=== PATIENT | female | born 1975 | race Caucasian/White ===

== ENCOUNTER 2019-02-28 09:28 | Inpatient (IN) | payer MEDICAID ==
[~2019-02-28] VITALS: Ht 162.6 cm; Wt 79.5 kg
[2019-02-28] MEDS ORDERED: ONDANSETRON ODT 4 MG PO PRN (10:30)
[2019-02-28] MEDS ORDERED: BISACODYL 10 MG SUPP PR PRN (10:30)
[2019-02-28] MEDS ORDERED: POLYETHYLENE GLYCOL 17 GM PACKET PO PRN (10:30)
[2019-02-28 10:32] VITALS: BP 166/106
[2019-02-28 10:33] VITALS: BP 166/97
[2019-02-28 10:34] VITALS: BP 145/93
[2019-02-28] MEDS ORDERED: CITA40TA12 PO (10:44)
[2019-02-28] MEDS ORDERED: QUET50TA5 PO (10:44)
[2019-02-28] MEDS ORDERED: DIVA500T2 PO (10:44)
[2019-02-28] MEDS ORDERED: SERT100T PO (10:48)
[2019-02-28] MEDS ORDERED: MELO7.5T31 PO (10:48)
[2019-02-28] MEDS ORDERED: OLAN10TA3 PO (10:48)
[2019-02-28] MEDS ORDERED: DICL100G19 TP (10:48)
[2019-02-28] MEDS ORDERED: LURA20TA PO (10:48)
[2019-02-28] MEDS ORDERED: PLEASE ENTER ALLERGIES MC SCH (11:00)
[2019-02-28 11:30] VITALS: BP 166/106
[2019-02-28] MEDS: ACETAMINOPHEN 325 MG TABLET PO PRN (11:31)
[2019-02-28] MEDS: QUETIAPINE 25MG TABLET PO PRN ×2 (13:00→21:19)
[2019-02-28] MEDS: DIVALPROEX 500 MG TAB.ER.24H PO SCH ×2 (13:00→21:18)
[2019-02-28] MEDS: LIDODERM 5% PATCH TD SCH (15:42)
[2019-02-28 15:44] LABS: MICROSCOPIC INDICATED
[2019-02-28 15:47] LABS: CULTURE INDICATED? YES
[2019-02-28 19:55] VITALS: BP 160/91
[2019-02-28] MEDS: DOCUSATE 100 MG CAPSULE PO PRN (22:00)
[2019-03-01 07:39] VITALS: BP 143/83
[2019-03-01] MEDS: NICOTINE 21 MG/24 HR PATCH.TD24 TD SCH (09:03)
[2019-03-01] MEDS: SERTRALINE 50MG TABLET PO SCH (09:04)
[2019-03-01] MEDS: QUETIAPINE 25MG TABLET PO PRN ×2 (09:04→18:15)
[2019-03-01] MEDS: DIVALPROEX 500 MG TAB.ER.24H PO SCH ×2 (09:04→20:11)
[2019-03-01] MEDS: ACETAMINOPHEN 325 MG TABLET PO PRN (09:04)
[2019-03-01 09:06] LABS: BASOPHILS # (AUTO) 0.04 x10^3/uL (0-0.1); BASOPHILS % (AUTO) 0 % (0-1); EOSINOPHILS # (AUTO) 0.09 x10^3/uL (0-0.4); EOSINOPHILS % (AUTO) 1 % (1-7); LYMPHOCYTES # (AUTO) 4.37 x10^3/uL (1-3.4); LYMPHOCYTES % (AUTO) 41 % (22-44); MD NO; MEAN CORPUSCULAR HEMOGLOBIN 35.1 pg (27.0-34.8); MEAN CORPUSCULAR HGB CONC 32.9 g/dL (32.4-35.8); MEAN CORPUSCULAR VOLUME 106.6 fL (80-100); MEAN PLATELET VOLUME 8.4 fL (7.4-10.4); MONOCYTES # (AUTO) 0.68 x10^3/uL (0.2-0.8); MONOCYTES % (AUTO) 6 % (2-9); NEUTROPHILS # (AUTO) 5.49 x10^3/uL (1.8-6.8); NEUTROPHILS % (AUTO) 51 % (42-75); PLATELET COUNT 325 x10^3/uL (130-400); RED BLOOD COUNT 5.03 x10^6/uL (3.82-5.3); RED CELL DISTRIBUTION WIDTH 12.7 % (9.6-15.2)
[2019-03-01 09:17] LABS: ANION GAP 8 mmol/L (5-15); CALCIUM 9.3 mg/dL (8.5-10.1); CHLORIDE 107 mmol/L (98-107)
[2019-03-01 09:21] LABS: CHOL/HDL RATIO 8.5; CHOLESTEROL, TOTAL 178 mg/dL (140-239); CREATININE 0.79 mg/dL (0.55-1.02); HDL CHOL % 12 % (28-40); HDL CHOLESTEROL (DIRECT) 21 mg/dL (40-60); LDL CHOLESTEROL,CALCULATED 104 mg/dL (54-169); TRIGLYCERIDES 266 mg/dL (50-200); VLDL CHOLESTEROL 53 mg/dL (0-25)
[2019-03-01 09:26] LABS: ACETAMINOPHEN < 2 mcg/mL (10-30)
[2019-03-01 12:50] VITALS: BP 164/107
[2019-03-01 13:06] VITALS: BP 164/107
[2019-03-01] MEDS: IBUPROFEN 200 MG TABLET PO PRN (13:06)
[2019-03-01 13:52] VITALS: BP 164/93
[2019-03-01 14:35] VITALS: BP 163/100
[2019-03-01] MEDS: LIDODERM 5% PATCH TD SCH (14:54)
[2019-03-01 19:33] VITALS: BP 151/88
[2019-03-01] MEDS: GABAPENTIN 100 MG CAPSULE PO SCH (20:11)
[2019-03-01] MEDS: GEMFIBROZIL 600 MG TABLET PO SCH (20:11)
[2019-03-02 07:25] VITALS: BP 160/88
[2019-03-02] MEDS: GABAPENTIN 100 MG CAPSULE PO SCH ×3 (09:15→20:39)
[2019-03-02] MEDS: SERTRALINE 50MG TABLET PO SCH (09:15)
[2019-03-02] MEDS: DIVALPROEX 500 MG TAB.ER.24H PO SCH ×2 (09:15→20:39)
[2019-03-02] MEDS: NICOTINE 21 MG/24 HR PATCH.TD24 TD SCH (09:15)
[2019-03-02] MEDS: QUETIAPINE 25MG TABLET PO PRN ×2 (09:25→18:10)
[2019-03-02] MEDS: IBUPROFEN 200 MG TABLET PO PRN (09:25)
[2019-03-02] MEDS: CHLORTHALIDONE 25 MG TABLET PO SCH (11:57)
[2019-03-02] MEDS: GEMFIBROZIL 600 MG TABLET PO SCH ×2 (11:57→20:49)
[2019-03-02] MEDS: LIDODERM 5% PATCH TD SCH (15:30)
[2019-03-02 19:43] VITALS: BP 138/87
[2019-03-02] MEDS: DOCUSATE 100 MG CAPSULE PO PRN (20:53)
[2019-03-03 07:09] LABS: ANION GAP 6 mmol/L (5-15); CALCIUM 8.6 mg/dL (8.5-10.1); CHLORIDE 108 mmol/L (98-107)
[2019-03-03 07:10] LABS: CREATININE 0.64 mg/dL (0.55-1.02)
[2019-03-03 07:13] VITALS: BP 137/96
[2019-03-03] MEDS: IBUPROFEN 200 MG TABLET PO PRN ×2 (07:30→19:41)
[2019-03-03] MEDS: DIVALPROEX 500 MG TAB.ER.24H PO SCH ×2 (09:57→20:52)
[2019-03-03] MEDS: CHLORTHALIDONE 25 MG TABLET PO SCH (09:58)
[2019-03-03] MEDS: QUETIAPINE 25MG TABLET PO PRN ×2 (09:58→20:53)
[2019-03-03] MEDS: GABAPENTIN 100 MG CAPSULE PO SCH ×3 (09:58→20:52)
[2019-03-03] MEDS: SERTRALINE 100MG TABLET PO SCH (10:00)
[2019-03-03] MEDS: NICOTINE 21 MG/24 HR PATCH.TD24 TD SCH (10:07)
[2019-03-03] MEDS: GEMFIBROZIL 600 MG TABLET PO SCH ×2 (10:49→21:01)
[2019-03-03] MEDS: DOCUSATE 100 MG CAPSULE PO PRN (10:50)
[2019-03-03] MEDS: LIDODERM 5% PATCH TD SCH (15:03)
[2019-03-03 15:45] VITALS: BP 172/112
[2019-03-03 17:30] VITALS: BP 154/92
[2019-03-03 20:00] VITALS: BP 148/97
[2019-03-04 02:55] VITALS: BP 146/85
[2019-03-04 05:08] VITALS: BP 134/84
[2019-03-04 07:22] VITALS: BP 138/85
[2019-03-04] MEDS: SERTRALINE 100MG TABLET PO SCH (09:28)
[2019-03-04] MEDS: GEMFIBROZIL 600 MG TABLET PO SCH ×2 (09:28→20:31)
[2019-03-04] MEDS: DIVALPROEX 500 MG TAB.ER.24H PO SCH ×2 (09:28→20:30)
[2019-03-04] MEDS: GABAPENTIN 100 MG CAPSULE PO SCH ×3 (09:30→20:31)
[2019-03-04] MEDS: CHLORTHALIDONE 25 MG TABLET PO SCH (09:30)
[2019-03-04] MEDS: NICOTINE 21 MG/24 HR PATCH.TD24 TD SCH (09:33)
[2019-03-04] MEDS: QUETIAPINE 25MG TABLET PO PRN (09:51)
[2019-03-04] MEDS: ACETAMINOPHEN 325 MG TABLET PO PRN (11:04)
[2019-03-04] MEDS: LIDODERM 5% PATCH TD SCH (14:35)
[2019-03-04 14:39] VITALS: BP 171/104
[2019-03-04] MEDS: BUSPIRONE 5 MG TABLET PO SCH ×2 (15:29→20:30)
[2019-03-04] MEDS: DOCUSATE 100 MG CAPSULE PO PRN (15:39)
[2019-03-04 17:30] VITALS: BP 144/94
[2019-03-04 19:57] VITALS: BP 137/93
[2019-03-04] MEDS: QUETIAPINE 100MG TABLET PO SCH (20:31)
[2019-03-04] MEDS: IBUPROFEN 200 MG TABLET PO PRN (20:32)
[2019-03-05 03:00] VITALS: BP 137/90
[2019-03-05 07:30] VITALS: BP 150/89
[2019-03-05] MEDS: DIVALPROEX 500 MG TAB.ER.24H PO SCH ×2 (08:40→20:02)
[2019-03-05] MEDS: BUSPIRONE 5 MG TABLET PO SCH ×3 (08:41→20:02)
[2019-03-05] MEDS: GEMFIBROZIL 600 MG TABLET PO SCH ×2 (08:41→20:01)
[2019-03-05] MEDS: CHLORTHALIDONE 25 MG TABLET PO SCH (08:41)
[2019-03-05] MEDS: SERTRALINE 100MG TABLET PO SCH (08:41)
[2019-03-05] MEDS: GABAPENTIN 100 MG CAPSULE PO SCH ×3 (08:41→20:01)
[2019-03-05] MEDS: NICOTINE 21 MG/24 HR PATCH.TD24 TD SCH (08:43)
[2019-03-05] MEDS: ACETAMINOPHEN 325 MG TABLET PO PRN ×2 (12:01→20:01)
[2019-03-05] MEDS: DOCUSATE 100 MG CAPSULE PO PRN (12:56)
[2019-03-05] MEDS: LIDODERM 5% PATCH TD SCH (15:37)
[2019-03-05 19:33] VITALS: BP 159/113
[2019-03-05] MEDS: QUETIAPINE 100MG TABLET PO SCH (20:01)
[2019-03-05 21:57] VITALS: BP 135/82
[2019-03-06 04:30] VITALS: BP 121/72
[2019-03-06 07:50] VITALS: BP 135/86
[2019-03-06] MEDS: NICOTINE 21 MG/24 HR PATCH.TD24 TD SCH (10:01)
[2019-03-06] MEDS: GEMFIBROZIL 600 MG TABLET PO SCH ×2 (10:02→20:10)
[2019-03-06] MEDS: GABAPENTIN 100 MG CAPSULE PO SCH ×3 (10:02→20:11)
[2019-03-06] MEDS: SERTRALINE 100MG TABLET PO SCH (10:02)
[2019-03-06] MEDS: DIVALPROEX 500 MG TAB.ER.24H PO SCH ×2 (10:03→20:11)
[2019-03-06] MEDS: BUSPIRONE 5 MG TABLET PO SCH ×3 (10:03→20:10)
[2019-03-06] MEDS: CHLORTHALIDONE 25 MG TABLET PO SCH (10:03)
[2019-03-06] MEDS: IBUPROFEN 200 MG TABLET PO PRN ×2 (10:30→20:10)
[2019-03-06] MEDS: LIDODERM 5% PATCH TD SCH (15:47)
[2019-03-06 16:03] VITALS: BP 127/65
[2019-03-06 19:47] VITALS: BP 135/85
[2019-03-06] MEDS: QUETIAPINE 100MG TABLET PO SCH (20:10)
[2019-03-06 22:04] VITALS: BP 131/83
[2019-03-07 07:23] VITALS: BP 124/80
[2019-03-07] MEDS: NICOTINE 21 MG/24 HR PATCH.TD24 TD SCH (08:53)
[2019-03-07] MEDS: GEMFIBROZIL 600 MG TABLET PO SCH ×2 (08:53→20:12)
[2019-03-07] MEDS: GABAPENTIN 100 MG CAPSULE PO SCH ×3 (08:53→20:12)
[2019-03-07] MEDS: BUSPIRONE 5 MG TABLET PO SCH ×3 (08:53→20:12)
[2019-03-07] MEDS: CHLORTHALIDONE 25 MG TABLET PO SCH (08:53)
[2019-03-07] MEDS: SERTRALINE 100MG TABLET PO SCH (08:53)
[2019-03-07] MEDS: DIVALPROEX 500 MG TAB.ER.24H PO SCH ×2 (08:53→20:12)
[2019-03-07] MEDS: ACETAMINOPHEN 325 MG TABLET PO PRN ×2 (13:27→20:12)
[2019-03-07] MEDS: LIDODERM 5% PATCH TD SCH ×2 (15:32→20:14)
[2019-03-07 15:47] VITALS: BP 130/81
[2019-03-07] MEDS: DOCUSATE 100 MG CAPSULE PO PRN (15:51)
[2019-03-07 19:40] VITALS: BP 129/93
[2019-03-07] MEDS: QUETIAPINE 100MG TABLET PO SCH (20:12)
[2019-03-08 07:32] VITALS: BP 125/81
[2019-03-08] MEDS: BUSPIRONE 5 MG TABLET PO SCH (08:55)
[2019-03-08] MEDS: GEMFIBROZIL 600 MG TABLET PO SCH (08:55)
[2019-03-08] MEDS: NICOTINE 21 MG/24 HR PATCH.TD24 TD SCH (08:55)
[2019-03-08] MEDS: DIVALPROEX 500 MG TAB.ER.24H PO SCH (08:55)
[2019-03-08] MEDS: SERTRALINE 100MG TABLET PO SCH (08:56)
[2019-03-08] MEDS: CHLORTHALIDONE 25 MG TABLET PO SCH (08:56)
[2019-03-08] MEDS: GABAPENTIN 100 MG CAPSULE PO SCH (08:56)
[2019-03-08] MEDS: ACETAMINOPHEN 325 MG TABLET PO PRN (09:03)
== END 2019-03-08 13:09 | disposition home or self-care (01) | DRG 885 ==
LOC: 3E 10:20
PROVIDERS: ADMIT Psychiatry & Neurology Psychosomatic Medicine; ATTEND Psychiatry & Neurology Psychosomatic Medicine
DX: F31.5 Bipolar disorder, current episode depressed, severe, with psychotic features (principal); T39.1X2A Poisoning by 4-Aminophenol derivatives, intentional self-harm, initial encounter; T45.0X2A Poisoning by antiallergic and antiemetic drugs, intentional self-harm, initial encounter; T39.312A Poisoning by propionic acid derivatives, intentional self-harm, initial encounter; T42.6X2A Poisoning by other antiepileptic and sedative-hypnotic drugs, intentional self-harm, initial encounter; M54.9 Dorsalgia, unspecified; G89.29 Other chronic pain; F41.1 Generalized anxiety disorder; F17.210 Nicotine dependence, cigarettes, uncomplicated; M41.9 Scoliosis, unspecified; I10 Essential (primary) hypertension; K59.00 Constipation, unspecified; I25.10 Atherosclerotic heart disease of native coronary artery without angina pectoris; E78.5 Hyperlipidemia, unspecified; G47.00 Insomnia, unspecified; Y92.89 Other specified places as the place of occurrence of the external cause; Z83.3 Family history of diabetes mellitus; Z90.710 Acquired absence of both cervix and uterus; Z79.899 Other long term (current) drug therapy; Z71.6 Tobacco abuse counseling; Z56.0 Unemployment, unspecified; Z72.89 Other problems related to lifestyle
CPT/HCPCS: 36415; 71045; 80048; 80061; 80307; 81001; 82140; 82607; 84439; 84443; 84703; 85025; 86592; 87086; 93005; 92522-GN

== ENCOUNTER 2019-12-25 18:45 | Inpatient (IN) | payer MEDICAID ==
[~2019-12-25] VITALS: Ht 170.2 cm; Wt 66.2 kg
[~2019-12-25 18:45] MED LIST: CHLO25TA PO; CITA40TA12 PO; DICL100G19 TP; DIVA500T2 PO; GABA300C10 PO; GEMF600T8 PO; HYDR50TA99 PO; LURA20TA PO; MELO7.5T31 PO; OLAN10TA3 PO; QUET100T PO; QUET50TA5 PO; SERT100T PO
[2019-12-25] MEDS ORDERED: BISACODYL 10 MG SUPP PR PRN (19:00)
[2019-12-25] MEDS ORDERED: ONDANSETRON ODT 4 MG PO PRN (19:00)
[2019-12-25] MEDS ORDERED: POLYETHYLENE GLYCOL 17 GM PACKET PO PRN (19:00)
[2019-12-25] MEDS ORDERED: DOCUSATE 100 MG CAPSULE PO PRN (19:00)
[2019-12-25 21:00] VITALS: BP 138/83
[2019-12-25 21:12] VITALS: BP 162/102
[2019-12-25] MEDS ORDERED: IBUPROFEN 200 MG TABLET PO PRN (22:30)
[2019-12-25] MEDS: DIPHENHYDRAMINE 25 MG CAPSULE PO PRN (23:19)
[2019-12-26] MEDS: CLOTRIMAZOLE CRM 1%, 15GM TP SCH ×3 (01:12→21:29)
[2019-12-26 01:29] VITALS: BP 132/83
[2019-12-26] MEDS ORDERED: CHLO25TA PO (04:00)
[2019-12-26 07:13] LABS: FREE T4 (FREE THYROXINE) 0.92 ng/dL (0.76-1.46)
[2019-12-26 07:14] LABS: CHOL/HDL RATIO 2.6; LDL/HDL RATIO 1.1 (0.5-3.0)
[2019-12-26 07:36] VITALS: BP 145/97
[2019-12-26 07:41] LABS: MICROSCOPIC NOT IND
[2019-12-26 07:46] LABS: CULTURE INDICATED? NO
[2019-12-26] MEDS: SERTRALINE 50MG TABLET PO SCH (09:00)
[2019-12-26] MEDS: ACETAMINOPHEN 325 MG TABLET PO PRN ×2 (09:29→21:27)
[2019-12-26] MEDS: GABAPENTIN 300 MG CAPSULE PO SCH ×2 (09:29→17:09)
[2019-12-26] MEDS: GEMFIBROZIL 600 MG TABLET PO SCH ×2 (09:29→21:14)
[2019-12-26] MEDS: CHLORTHALIDONE 25 MG TABLET PO SCH (09:30)
[2019-12-26] MEDS: NICOTINE 21 MG/24 HR PATCH.TD24 TD SCH (09:30)
[2019-12-26] MEDS ORDERED: SERTRALINE 100MG TABLET ONE (09:40)
[2019-12-26] MEDS ORDERED: MELOXICAM 15 MG TABLET PO ONE (15:30)
[2019-12-26] MEDS: HYDROXYZINE PAMOATE 50MG CAP PO PRN ×2 (15:39→21:15)
[2019-12-26] MEDS: SERTRALINE 100MG TABLET PO SCH (17:09)
[2019-12-26 19:36] VITALS: BP 169/94
[2019-12-26] MEDS ORDERED: LORazepam 2 MG/ML, 1ML ONE (20:54)
[2019-12-26] MEDS: QUETIAPINE 100MG TABLET PO SCH (21:15)
[2019-12-26] MEDS: DIVALPROEX 500 MG TABLET.DR PO SCH (21:25)
[2019-12-27] MEDS: ACETAMINOPHEN 325 MG TABLET PO PRN (02:35)
[2019-12-27] MEDS: ALBUTEROL SULFATE 2.5 MG/3 ML NPPB PRN (04:09)
[2019-12-27] MEDS ORDERED: LORazepam 2 MG/ML, 1ML IM PRN (05:00)
[2019-12-27 07:34] VITALS: BP 141/101
[2019-12-27] MEDS: CLOTRIMAZOLE CRM 1%, 15GM TP SCH ×2 (09:00→21:00)
[2019-12-27] MEDS: DIVALPROEX 500 MG TABLET.DR PO SCH ×2 (09:27→21:00)
[2019-12-27] MEDS: MELOXICAM 15 MG TABLET PO SCH (09:27)
[2019-12-27] MEDS: CHLORTHALIDONE 25 MG TABLET PO SCH (09:27)
[2019-12-27] MEDS: GABAPENTIN 300 MG CAPSULE PO SCH ×2 (09:27→19:41)
[2019-12-27] MEDS: GEMFIBROZIL 600 MG TABLET PO SCH ×2 (09:28→20:54)
[2019-12-27] MEDS: SERTRALINE 50MG TABLET PO SCH (09:28)
[2019-12-27] MEDS: NICOTINE 21 MG/24 HR PATCH.TD24 TD SCH (09:37)
[2019-12-27] MEDS: HYDROXYZINE PAMOATE 50MG CAP PO PRN ×2 (09:41→20:54)
[2019-12-27] MEDS ORDERED: LORazepam 1MG TABLET PO ONE (13:30)
[2019-12-27] MEDS: QUETIAPINE 25MG TABLET PO SCH ×3 (15:28→21:48)
[2019-12-27] MEDS: SERTRALINE 100MG TABLET PO SCH (17:31)
[2019-12-27] MEDS: QUETIAPINE 100MG TABLET PO SCH (21:46)
[2019-12-28] MEDS: ALBUTEROL SULFATE 2.5 MG/3 ML NPPB PRN ×2 (03:01→20:47)
[2019-12-28 07:31] VITALS: BP 133/89
[2019-12-28] MEDS: SERTRALINE 50MG TABLET PO SCH (09:02)
[2019-12-28] MEDS: MELOXICAM 15 MG TABLET PO SCH (09:02)
[2019-12-28] MEDS: QUETIAPINE 25MG TABLET PO SCH ×2 (09:04→21:53)
[2019-12-28] MEDS: DIVALPROEX 500 MG TABLET.DR PO SCH ×2 (09:08→21:49)
[2019-12-28] MEDS: GEMFIBROZIL 600 MG TABLET PO SCH ×2 (09:11→21:45)
[2019-12-28] MEDS: GABAPENTIN 300 MG CAPSULE PO SCH ×2 (09:11→18:18)
[2019-12-28] MEDS: CHLORTHALIDONE 25 MG TABLET PO SCH (09:11)
[2019-12-28] MEDS: NICOTINE 21 MG/24 HR PATCH.TD24 TD SCH (15:47)
[2019-12-28] MEDS: CLOTRIMAZOLE CRM 1%, 15GM TP SCH ×2 (15:47→21:53)
[2019-12-28 19:52] VITALS: BP 150/103
[2019-12-28] MEDS: IBUPROFEN 200 MG TABLET PO PRN (21:42)
[2019-12-28] MEDS: DIPHENHYDRAMINE 25 MG CAPSULE PO PRN (21:48)
[2019-12-28] MEDS: QUETIAPINE 100MG TABLET PO SCH (21:48)
[2019-12-29 07:54] VITALS: BP 130/87
[2019-12-29] MEDS: NICOTINE 21 MG/24 HR PATCH.TD24 TD SCH (08:09)
[2019-12-29] MEDS: GEMFIBROZIL 600 MG TABLET PO SCH ×2 (08:10→20:25)
[2019-12-29] MEDS: IBUPROFEN 200 MG TABLET PO PRN ×2 (08:10→15:47)
[2019-12-29] MEDS: MELOXICAM 15 MG TABLET PO SCH (08:10)
[2019-12-29] MEDS: QUETIAPINE 25MG TABLET PO SCH ×2 (08:10→20:26)
[2019-12-29] MEDS: DIVALPROEX 500 MG TABLET.DR PO SCH ×2 (08:11→20:25)
[2019-12-29] MEDS: HYDROXYZINE PAMOATE 50MG CAP PO PRN ×2 (08:11→15:46)
[2019-12-29] MEDS: CHLORTHALIDONE 25 MG TABLET PO SCH (08:11)
[2019-12-29] MEDS: SERTRALINE 50MG TABLET PO SCH (08:11)
[2019-12-29] MEDS: GABAPENTIN 300 MG CAPSULE PO SCH ×2 (08:11→17:47)
[2019-12-29] MEDS: CLOTRIMAZOLE CRM 1%, 15GM TP SCH ×2 (09:00→21:00)
[2019-12-29 19:50] VITALS: BP 133/94
[2019-12-29] MEDS: QUETIAPINE 100MG TABLET PO SCH (20:26)
[2019-12-30] MEDS: IBUPROFEN 200 MG TABLET PO PRN (05:39)
[2019-12-30 07:20] VITALS: BP 132/86
[2019-12-30] MEDS ORDERED: QUET25TA7 PO (09:13)
[2019-12-30] MEDS ORDERED: NICO-487 TD (09:13)
[2019-12-30] MEDS ORDERED: DIVA-61 PO (09:13)
[2019-12-30] MEDS ORDERED: QUET100T PO (09:13)
[2019-12-30] MEDS ORDERED: GABA300C10 PO ×2 (09:13)
[2019-12-30] MEDS ORDERED: SERT50TA28 PO (09:13)
[2019-12-30] MEDS ORDERED: HYDR50CA2 PO (09:13)
[2019-12-30] MEDS ORDERED: GEMF600T8 PO (09:13)
[2019-12-30] MEDS ORDERED: CHLO25TA PO (09:13)
[2019-12-30] MEDS ORDERED: MELO15TA24 PO (09:13)
[2019-12-30] MEDS: DIVALPROEX 500 MG TABLET.DR PO SCH ×2 (09:25→09:30)
[2019-12-30] MEDS: GABAPENTIN 300 MG CAPSULE PO SCH (09:25)
[2019-12-30] MEDS: GEMFIBROZIL 600 MG TABLET PO SCH (09:25)
[2019-12-30] MEDS: MELOXICAM 15 MG TABLET PO SCH (09:26)
[2019-12-30] MEDS: NICOTINE 21 MG/24 HR PATCH.TD24 TD SCH (09:26)
[2019-12-30] MEDS: CHLORTHALIDONE 25 MG TABLET PO SCH (09:26)
[2019-12-30] MEDS: QUETIAPINE 25MG TABLET PO SCH (09:26)
[2019-12-30] MEDS: SERTRALINE 50MG TABLET PO SCH (09:26)
[2019-12-30] MEDS: CLOTRIMAZOLE CRM 1%, 15GM TP SCH (09:26)
== END 2019-12-30 12:48 | disposition home or self-care (01) | DRG 753 ==
LOC: 3E 20:42
PROVIDERS: ADMIT Psychiatry & Neurology Psychosomatic Medicine; ATTEND Psychiatry & Neurology Psychosomatic Medicine
DX: F31.64 Bipolar disorder, current episode mixed, severe, with psychotic features (principal); M41.9 Scoliosis, unspecified; E78.1 Pure hyperglyceridemia; F17.200 Nicotine dependence, unspecified, uncomplicated; F41.9 Anxiety disorder, unspecified; G47.00 Insomnia, unspecified; G89.29 Other chronic pain; I25.10 Atherosclerotic heart disease of native coronary artery without angina pectoris; Z79.1 Long term (current) use of non-steroidal anti-inflammatories (NSAID); Z79.899 Other long term (current) drug therapy; Z83.3 Family history of diabetes mellitus; Z83.49 Family history of other endocrine, nutritional and metabolic diseases; Z80.1 Family history of malignant neoplasm of trachea, bronchus and lung
CPT/HCPCS: 36415; 71045; 80061; 81003; 82140; 84439; 84443; 93005; 94640; J7613; J2060; Q0163; Q0177

== ENCOUNTER 2020-01-12 07:07 | Emergency (ER) | payer MEDICAID ==
[~2020-01-12] VITALS: Ht 170.2 cm; Wt 62.8 kg
[~2020-01-12 07:07] MED LIST changes: +DIVA-61 PO; +HYDR50CA2 PO; +MELO15TA24 PO; +NICO-487 TD; +QUET25TA7 PO; +SERT50TA28 PO
[2020-01-12 07:10] VITALS: BP 148/80
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
--- NOTE | 2020-01-12 07:48 | NUR ---
SECOND ATTEMPT TO OBTAIN EKG PER EMT, PT IN RM, STATES SHE IS HUNGRY, ATTEMPTING TO MAKE MAC AND CHEESE WITH WATER FROM THE SINK, PT NOT TAKING OFF SHIRT FOR ACCESS FOR EMT TO OBTAIN EKG, ATTEMPTED TO REDIRECT PT WITH NO SUCCESS AT THIS TIME, WILL UPDATE ERMD.
== END 2020-01-12 08:39 | disposition home or self-care (01) ==
LOC: ED 07:35
DX: I11.9 Hypertensive heart disease without heart failure (principal); Z76.0 Encounter for issue of repeat prescription; E78.00 Pure hypercholesterolemia, unspecified; F20.9 Schizophrenia, unspecified; F17.290 Nicotine dependence, other tobacco product, uncomplicated; Z90.710 Acquired absence of both cervix and uterus
CPT/HCPCS: 93005; 99283

== ENCOUNTER 2020-01-15 08:34 | Emergency (ER) | payer MEDICAID ==
[~2020-01-15] VITALS: Ht 170.2 cm; Wt 74.5 kg
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
[2020-01-15 08:41] VITALS: BP 157/88
[2020-01-15] MEDS ORDERED: SODIUM CHLORIDE FLUSH 10ML SYR IVF ONE (09:00)
[2020-01-15] MEDS ORDERED: SODIUM CHLORIDE 0.9% 1,000ML IVBOLUS ONE (09:00)
[2020-01-15 09:01] LABS: BASOPHILS # (AUTO) 0.04 x10^3/uL (0-0.1); BASOPHILS % (AUTO) 0 % (0-1); EOSINOPHILS # (AUTO) 0.07 x10^3/uL (0-0.4); EOSINOPHILS % (AUTO) 1 % (1-7); LYMPHOCYTES # (AUTO) 1.96 x10^3/uL (1-3.4); LYMPHOCYTES % (AUTO) 18 % (22-44); MD NO; MEAN CORPUSCULAR HEMOGLOBIN 34.3 pg (27.0-34.8); MEAN CORPUSCULAR HGB CONC 33.8 g/dL (32.4-35.8); MEAN CORPUSCULAR VOLUME 101.3 fL (80-100); MEAN PLATELET VOLUME 7.9 fL (7.4-10.4); MONOCYTES # (AUTO) 0.66 x10^3/uL (0.2-0.8); MONOCYTES % (AUTO) 6 % (2-9); NEUTROPHILS # (AUTO) 8.41 x10^3/uL (1.8-6.8); NEUTROPHILS % (AUTO) 76 % (42-75); PLATELET COUNT 397 x10^3/uL (130-400); RED BLOOD COUNT 4.32 x10^6/uL (3.82-5.3); RED CELL DISTRIBUTION WIDTH 13.9 % (9.6-15.2)
[2020-01-15 09:13] LABS: ALANINE AMINOTRANSFERASE 42 U/L (12-78); ALBUMIN 4.2 g/dL (3.4-5.0); ANION GAP 8 mmol/L (5-15); CALCIUM 9.8 mg/dL (8.5-10.1); CHLORIDE 109 mmol/L (98-107); CREATININE 0.72 mg/dL (0.55-1.02)
[2020-01-15 09:16] LABS: ALKALINE PHOSPHATASE 72 U/L (45-117); BILIRUBIN,TOTAL 0.7 mg/dL (0.2-1.0); CREATINE KINASE, TOTAL 591 U/L (26-192); TOTAL PROTEIN 7.3 g/dL (6.4-8.2)
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
--- NOTE | 2020-01-15 09:54 | NUR ---
ERP WAS IN FOR RECHECK.
--- NOTE | 2020-01-15 10:02 | NUR ---
UA NOT NECESSARY PER ERP.
[2020-01-15] MEDS ORDERED: NEOSPORIN OINT. PKT 1 PACKET ONE (10:16)
--- NOTE | 2020-01-15 10:35 | NUR ---
SUPPLIES PROVIDED TO PT AND SUPERFICIAL SCABS/ABRASIONS TO FINGERS AND LEGS CLEANED & DRESSED WITH STERILE SALINE, ABX OINTMENT, AND COVERED WITH BAND-AIDS BY PT. NEW CLOTHES PROVIDED TO PT. D/C INSTRUCTIONS PROVIDED TO PT & COMMUNITY RESOURCES PROVIDED TO PT. ASSISTED PT OUT OF ED VIA WC.
== END 2020-01-15 10:46 | disposition home or self-care (01) ==
LOC: ED 09:11
DX: S50.812A Abrasion of left forearm, initial encounter (principal); S50.811A Abrasion of right forearm, initial encounter; S70.312A Abrasion, left thigh, initial encounter; S70.311A Abrasion, right thigh, initial encounter; S80.812A Abrasion, left lower leg, initial encounter; S80.811A Abrasion, right lower leg, initial encounter; T68.XXXA Hypothermia, initial encounter; I10 Essential (primary) hypertension; E78.00 Pure hypercholesterolemia, unspecified; F17.210 Nicotine dependence, cigarettes, uncomplicated; Z90.710 Acquired absence of both cervix and uterus; W01.0XXA Fall on same level from slipping, tripping and stumbling without subsequent striking against object, initial encounter; Y93.89 Activity, other specified; Y92.410 Unspecified street and highway as the place of occurrence of the external cause; Y99.8 Other external cause status
CPT/HCPCS: 36415; 80053; 80307; 82550; 85025; 99283; J7030

== ENCOUNTER 2020-01-23 20:32 | Emergency (ER) | payer MEDICAID ==
[~2020-01-23] VITALS: Ht 170.2 cm; Wt 61.2 kg
--- NOTE | 2020-01-23 21:33 | NUR ---
INTO ROOM TO DC PATIENT. PT HAD GONE THROUGH THE CABINETS AND REMOVED SUPPLIES. PT HAD EACH FINGER ON BOTH HANDS COMPLETELY COVERED IN BANDAIDS. A LARGE STACK OF UNOPENED BANDAIDS NEXT TO HER PURSE AND MANY PIECES OF GAUZE. PT WAS INFORMED SHE CANNOT HAVE ANY MORE BANDAIDS EXCEPT WHAT IS ALREADY ON HER HANDS. CONTAMINATED SUPPLIES THROWN AWAY.
[2020-01-23 21:35] VITALS: BP 124/74
--- NOTE | 2020-01-23 21:48 | NUR ---
PT TRIED STEALING MULTIPLE HOSPITAL GOWNS. PT WAS RETURNED TO ROOM AND SHE PLACED THE GOWNS ON THE FLOOR. PT AMBULATES WITH STEADY GAIT TO DC DESK.
== END 2020-01-23 21:50 | disposition home or self-care (01) ==
LOC: ED 20:57
DX: M79.10 Myalgia, unspecified site (principal); Z76.0 Encounter for issue of repeat prescription; Z72.9 Problem related to lifestyle, unspecified; I10 Essential (primary) hypertension; F20.9 Schizophrenia, unspecified; Z90.710 Acquired absence of both cervix and uterus; F17.200 Nicotine dependence, unspecified, uncomplicated
CPT/HCPCS: 99281

== ENCOUNTER 2020-01-28 14:55 | Emergency (ER) | payer MEDICAID ==
[~2020-01-28] VITALS: Ht 170.2 cm; Wt 59.4 kg
[2020-01-28 14:57] VITALS: BP 128/78
== END 2020-01-28 16:22 | disposition home or self-care (01) ==
LOC: ED 16:18
DX: F32.9 Major depressive disorder, single episode, unspecified (principal); Z76.0 Encounter for issue of repeat prescription; Z72.9 Problem related to lifestyle, unspecified; I10 Essential (primary) hypertension; F20.9 Schizophrenia, unspecified
CPT/HCPCS: 99281

== ENCOUNTER 2020-02-03 23:53 | Emergency (ER) | payer MEDICAID ==
[~2020-02-03] VITALS: Ht 167.6 cm; Wt 56.0 kg
[2020-02-04 00:29] LABS: BASOPHILS # (AUTO) 0.03 x10^3/uL (0-0.1); BASOPHILS % (AUTO) 0 % (0-1); EOSINOPHILS # (AUTO) 0.06 x10^3/uL (0-0.4); EOSINOPHILS % (AUTO) 1 % (1-7); LYMPHOCYTES # (AUTO) 3.44 x10^3/uL (1-3.4); LYMPHOCYTES % (AUTO) 26 % (22-44); MD NO; MEAN CORPUSCULAR HEMOGLOBIN 33.6 pg (27.0-34.8); MEAN CORPUSCULAR HGB CONC 33.6 g/dL (32.4-35.8); MEAN CORPUSCULAR VOLUME 100.1 fL (80-100); MEAN PLATELET VOLUME 8.6 fL (7.4-10.4); MONOCYTES # (AUTO) 0.69 x10^3/uL (0.2-0.8); MONOCYTES % (AUTO) 5 % (2-9); NEUTROPHILS # (AUTO) 8.83 x10^3/uL (1.8-6.8); NEUTROPHILS % (AUTO) 68 % (42-75); PLATELET COUNT 406 x10^3/uL (130-400); RED BLOOD COUNT 4.22 x10^6/uL (3.82-5.3); RED CELL DISTRIBUTION WIDTH 14.2 % (9.6-15.2)
--- NOTE | 2020-02-04 00:30 | NUR ---
PT BIB EMS FROM [facility]. PT C/O HER UTERUS FALLING OUT. PT HAS A FLIGHT OF IDEAS AND MOVING AROUND ROOM. PT DENIES SI, HI. GARAGE DOORS DOWN. ROOM SECURE. ONE BAG OF BELONGINGS IN LOCKER. WILL CONTINUE TO MONITOR.
[2020-02-04 00:39] LABS: ANION GAP 7 mmol/L (5-15); CALCIUM 9.4 mg/dL (8.5-10.1); CHLORIDE 107 mmol/L (98-107); CREATININE 0.76 mg/dL (0.55-1.02)
[2020-02-04 00:40] LABS: ALANINE AMINOTRANSFERASE 31 U/L (12-78); ALBUMIN 3.6 g/dL (3.4-5.0)
[2020-02-04 00:44] LABS: ALKALINE PHOSPHATASE 74 U/L (45-117); BILIRUBIN,TOTAL 0.4 mg/dL (0.2-1.0); TOTAL PROTEIN 7.2 g/dL (6.4-8.2)
--- NOTE | 2020-02-04 00:46 | NUR ---
PT GIVEN A WARM BLANKET, PT IS IN A GOWN AND RESTING IN BED. WILL CONTINUE TO MONITOR.
--- NOTE | 2020-02-04 01:13 | NUR ---
REPORT OF PT FROM JESSICA JOHNS AND ASSUMING CARE OF PT AT THIS TIME. PT RESTING IN GURNEY WITH NO ACUTE DISTRESS NOTED. LIGHTS ARE DIMMED FOR PT COMFORT AT THIS TIME. PT WITH WARM BLANKET FOR PT COMFORT.
--- NOTE | 2020-02-04 01:30 | NUR ---
REPORT GIVEN TO JESSICA PARIKH
--- NOTE | 2020-02-04 02:55 | NUR ---
PT ASLEEP IN [facility] AT THIS TIME WITH NADN. PT HAS BILATERAL RISE AND FALL OF CHEST NOTED WHILE SLEEPING. WILL CONTINUE TO MONITOR PT FOR NEEDS.
--- NOTE | 2020-02-04 03:30 | NUR ---
PT RESTING IN [facility] AT THIS TIME; [place]. PT TALKING TO SELF AND SPEAKING WITH FLIGHT OF IDEAS.
--- NOTE | 2020-02-04 04:45 | NUR ---
PT AMBULATES TO RESTROOM WITH STEADY GAIT. PT REQUESTING SNACK.
--- NOTE | 2020-02-04 05:15 | NUR ---
PT PACING HALLS AND LOOKING THROUGH CUPBOARDS IN OTHER PT ROOMS. PT ASKED TO RETURN TO [facility] AT THIS TIME AND COOPERATE WITH STAYING IN ROOM. PT UNABLE TO VERBALIZE UNDERSTANDING. SITTER REQUESTED AGAIN FROM MANAGER SIMULATION.
--- NOTE | 2020-02-04 06:05 | NUR ---
PT ASLEEP IN [facility] AT THIS TIME; NADN. EQUAL BILATERAL RISE AND FALL OF CHEST NOTED. TELEPSYCH MONITOR REMOVED FROM PT ROOM AT THIS TIME.
--- NOTE | 2020-02-04 06:50 | NUR ---
PT REPORT FROM JL Philippe RN. PT CARE TO BE ASSUMED. SITTER OUTSIDE PT ROOM
--- NOTE | 2020-02-04 07:10 | NUR ---
PT ASLEEP ON BED, EVEN CHEST RISE & FALL NOTED, SIDE RAILS UP X2.
--- NOTE | 2020-02-04 07:11 | NUR ---
LEGAL HOLD ON CHART, SIGNED BY DR SCHOFIELD.
--- NOTE | 2020-02-04 08:05 | NUR ---
PT WALKED TO NC DESK; ESCORTED BACK TO ROOM. PT STATES SHE NEEDS TO GET TO [facility] AND SOME FOOD. INFORMED PT BREAKFAST TRAY WOULD BE ORDERED. INSTRUCTED PT TO STAY IN ROOM. SITTER OUTSIDE ROOM.
--- NOTE | 2020-02-04 08:12 | NUR ---
PT WAS STANDING IN [facility] DEMANDING MENU. INSTRUCTED PT TO RETURN ROOM. INFORMED PT MENU NOT AVAILABLE AND THAT BREAKFAST WOULD BE ORDERED. PT STATED "MY IV NEEDS TO BE TURNED UP SO I CAN PEE". PT IV PRESENT. BREAKFAST TRAY ORDERED.
--- NOTE | 2020-02-04 09:31 | NUR ---
VOIDED SPECIMEN PROVIDED; WILL BE WALKED TO LAB. PT DEMANDING PAIN MEDS. PT DENIES PAIN, STATES "THEY'RE JUST GOOD TO HAVE ON HAND". PT DEMANDING TO TALK TO DOCTOR ON THE 3RD FLOOR. INFORMED PT THAT SOON I KNOW THE PLAN, I WILL LET HER KNOW. PT VERBALIZED UNDERSTANDING. SITTER OUTSIDE ROOM.
[2020-02-04] MEDS ORDERED: ACETAMINOPHEN 325 MG TABLET ONE (09:53)
--- NOTE | 2020-02-04 09:56 | NUR ---
PT WAS REQUESTING PAIN MEDICATION FOR GENERALIZED BODY PAIN. NOTIFIED DR. CORDERO. TYLENOL ORDERED AND GIVEN.
[2020-02-04 10:00] LABS: AMPHETAMINE SCREEN, URINE Negative (Negative); BARBITURATE SCREEN, URINE Negative (Negative); BENZODIAZEPINE SCREEN, URINE Negative (Negative); CANNABINOID SCREEN, URINE Positive (Negative); COCAINE SCREEN, URINE Negative (Negative); METHADONE SCREEN, URINE Negative (Negative); OPIATE SCREEN, URINE Negative (Negative)
[2020-02-04] MEDS ORDERED: ACETAMINOPHEN 325 MG TABLET PO ONE (10:00)
--- NOTE | 2020-02-04 10:37 | NUR ---
PT ASLEEP. RESP EVEN & UNLABORED.
[2020-02-04 11:30] VITALS: BP 132/90
--- NOTE | 2020-02-04 11:35 | NUR ---
PT DEMANDING A TAXI TO TAKE HER AWAY. INFORMED PT SHE IS ON A LEGAL HOLD AND UNABLE TO LEAVE. PT NOT BELIEVING INFORMATION, REFUSING TO RETURN TO ROOM. ADDITIONAL ER STAFF TO ROOM FOR ASSISTANCE.
--- NOTE | 2020-02-04 11:43 | NUR ---
LUNCH TRAY ORDERED
[2020-02-04] MEDS ORDERED: IBUPROFEN 600 MG TABLET ONE (11:54)
[2020-02-04] MEDS ORDERED: IBUPROFEN 600 MG TABLET PO ONE (12:00)
--- NOTE | 2020-02-04 12:13 | NUR ---
LUNCH TRAY DELIVERED.
--- NOTE | 2020-02-04 12:47 | NUR ---
PT REPORT TO JESSICA HAN. PT CARE TRANSFERRED. SITTER OUTSIDE ROOM
--- NOTE | 2020-02-04 12:55 | NUR ---
SBAR HAND-OFF REPORT RECEIVED FROM JESSICA METZGER. ASSUMING CARE OF PATIENT.
[2020-02-04] MEDS ORDERED: NEOSPORIN OINT. PKT 1 PACKET ONE (14:30)
--- NOTE | 2020-02-04 16:13 | NUR ---
ATTEMPTED TO CALL REPORT TO [facility]. RN TO CALL BACK FOR REPORT.
--- NOTE | 2020-02-04 17:19 | NUR ---
SBAR TELEPHONE HAND-OFF REPORT GIVEN TO JESSICA CASTRO IN U.
== END 2020-02-04 ==
LOC: ED 02-04 00:13
DX: F20.0 Paranoid schizophrenia (principal); F23 Brief psychotic disorder; I10 Essential (primary) hypertension; F41.1 Generalized anxiety disorder; F31.9 Bipolar disorder, unspecified; E78.00 Pure hypercholesterolemia, unspecified; Z90.710 Acquired absence of both cervix and uterus
CPT/HCPCS: 36415; 80053; 80307; 84703; 85025; 99285

== ENCOUNTER 2020-02-04 13:36 | Inpatient (IN) | payer MEDICAID ==
[~2020-02-04] VITALS: Ht 170.2 cm; Wt 57.4 kg
[2020-02-04] MEDS ORDERED: ACETAMINOPHEN 325 MG TABLET PO PRN (14:30)
[2020-02-04] MEDS ORDERED: BISACODYL 10 MG SUPP PR PRN (14:30)
[2020-02-04] MEDS ORDERED: POLYETHYLENE GLYCOL 17 GM PACKET PO PRN (14:30)
[2020-02-04] MEDS ORDERED: DOCUSATE 100 MG CAPSULE PO PRN (14:30)
[2020-02-04] MEDS ORDERED: ONDANSETRON ODT 4 MG PO PRN (14:30)
[2020-02-04 18:00] VITALS: BP 136/87
[2020-02-04 19:00] VITALS: BP 145/84
[2020-02-04] MEDS ORDERED: PLEASE ENTER HEIGHT AND WEIGHT MC SCH (19:00)
[2020-02-04] MEDS: DIVALPROEX 500 MG TABLET.DR PO SCH (20:47)
[2020-02-04] MEDS: QUETIAPINE 100MG TABLET PO SCH (20:47)
[2020-02-04] MEDS: HYDROXYZINE PAMOATE 50MG CAP PO PRN (20:48)
[2020-02-04 23:58] LABS: MICROSCOPIC NOT IND
[2020-02-05 00:02] LABS: CULTURE INDICATED? NO
[2020-02-05 02:19] VITALS: BP 136/87
[2020-02-05 05:44] LABS: CHOL/HDL RATIO 2.9; FREE T4 (FREE THYROXINE) 0.97 ng/dL (0.76-1.46); LDL/HDL RATIO 1.5 (0.5-3.0)
[2020-02-05 07:35] VITALS: BP 116/80
[2020-02-05 08:23] LABS: ANION GAP 9 mmol/L (5-15); CALCIUM 9.1 mg/dL (8.5-10.1); CHLORIDE 113 mmol/L (98-107); CREATININE 0.71 mg/dL (0.55-1.02)
[2020-02-05] MEDS ORDERED: CHLORTHALIDONE 25 MG TABLET PO SCH (09:00)
[2020-02-05] MEDS: DIVALPROEX 500 MG TABLET.DR PO SCH ×2 (09:08→20:32)
[2020-02-05] MEDS: CHLORTHALIDONE 25 MG TABLET PO SCH (09:08)
[2020-02-05] MEDS: GEMFIBROZIL 600 MG TABLET PO SCH ×2 (09:08→20:32)
[2020-02-05] MEDS: GABAPENTIN 300 MG CAPSULE PO SCH ×2 (09:08→17:42)
[2020-02-05] MEDS: QUETIAPINE 100MG TABLET PO SCH ×2 (09:09→20:32)
[2020-02-05] MEDS: NICOTINE 21 MG/24 HR PATCH.TD24 TD SCH (09:11)
[2020-02-05] MEDS ORDERED: OMNIPAQUE 350 MG/ML, 100ML BOTTLE ONE (10:18)
[2020-02-05 20:00] VITALS: BP 121/76
[2020-02-05] MEDS: HYDROXYZINE PAMOATE 50MG CAP PO PRN (20:32)
[2020-02-06 06:00] LABS: MEAN CORPUSCULAR HGB CONC 32.9 g/dL (32.4-35.8); MEAN CORPUSCULAR VOLUME 100.4 fL (80-100); MEAN PLATELET VOLUME 8.5 fL (7.4-10.4); PLATELET COUNT 400 x10^3/uL (130-400); RED BLOOD COUNT 4.04 x10^6/uL (3.82-5.3); RED CELL DISTRIBUTION WIDTH 14.3 % (9.6-15.2)
[2020-02-06 06:01] LABS: ANION GAP 7 mmol/L (5-15); CALCIUM 9.4 mg/dL (8.5-10.1); CHLORIDE 107 mmol/L (98-107)
[2020-02-06 06:02] LABS: CREATININE 0.74 mg/dL (0.55-1.02)
[2020-02-06 06:19] LABS: BASOPHILS # (AUTO) 0.04 x10^3/uL (0-0.1); BASOPHILS % (AUTO) 0 % (0-1); EOSINOPHILS # (AUTO) 0.17 x10^3/uL (0-0.4); EOSINOPHILS % (AUTO) 2 % (1-7); LYMPHOCYTES # (AUTO) 3.79 x10^3/uL (1-3.4); LYMPHOCYTES % (AUTO) 35 % (22-44); MD SCAN; MONOCYTES # (AUTO) 0.74 x10^3/uL (0.2-0.8); MONOCYTES % (AUTO) 7 % (2-9); NEUTROPHILS # (AUTO) 6.13 x10^3/uL (1.8-6.8); NEUTROPHILS % (AUTO) 56 % (42-75)
[2020-02-06 07:47] VITALS: BP 129/86
[2020-02-06] MEDS: GABAPENTIN 300 MG CAPSULE PO SCH ×2 (08:22→17:15)
[2020-02-06] MEDS: NICOTINE 21 MG/24 HR PATCH.TD24 TD SCH (08:22)
[2020-02-06] MEDS: DIVALPROEX 500 MG TABLET.DR PO SCH ×2 (08:22→20:16)
[2020-02-06] MEDS: QUETIAPINE 100MG TABLET PO SCH (08:22)
[2020-02-06] MEDS: GEMFIBROZIL 600 MG TABLET PO SCH ×2 (08:22→20:18)
[2020-02-06] MEDS: CHLORTHALIDONE 25 MG TABLET PO SCH (08:22)
[2020-02-06] MEDS: LORazepam 1MG TABLET PO PRN ×2 (11:06→21:10)
[2020-02-06 19:00] VITALS: BP 122/79
[2020-02-06] MEDS ORDERED: QUETIAPINE 100MG TABLET PO SCH (21:00)
[2020-02-06] MEDS: HYDROXYZINE PAMOATE 50MG CAP PO PRN (22:39)
[2020-02-07 07:51] VITALS: BP 96/70
[2020-02-07] MEDS: NICOTINE 21 MG/24 HR PATCH.TD24 TD SCH (08:34)
[2020-02-07 08:59] VITALS: BP 116/62
[2020-02-07] MEDS: GEMFIBROZIL 600 MG TABLET PO SCH (09:01)
[2020-02-07] MEDS: QUETIAPINE 100MG TABLET PO SCH (09:01)
[2020-02-07] MEDS: GABAPENTIN 300 MG CAPSULE PO SCH (09:01)
[2020-02-07] MEDS: DIVALPROEX 500 MG TABLET.DR PO SCH (09:02)
[2020-02-07] MEDS: CHLORTHALIDONE 25 MG TABLET PO SCH (09:02)
[2020-02-07] MEDS ORDERED: HYDR50CA2 PO (12:52)
[2020-02-07] MEDS ORDERED: GABA300C10 PO ×2 (12:52)
[2020-02-07] MEDS ORDERED: QUET100T PO ×2 (12:52)
[2020-02-07] MEDS ORDERED: CHLO25TA PO (12:52)
[2020-02-07] MEDS ORDERED: GEMF600T8 PO (12:52)
[2020-02-07] MEDS ORDERED: DIVA-61 PO (12:52)
[2020-02-07] MEDS ORDERED: MUPIROCIN OINT 2%, 1 GM APPL. TP SCH (14:03)
== END 2020-02-07 14:20 | disposition home or self-care (01) | DRG 750 ==
LOC: 3E 17:45
PROVIDERS: ADMIT Psychiatry & Neurology Psychosomatic Medicine; ATTEND Psychiatry & Neurology Psychosomatic Medicine
DX: F25.0 Schizoaffective disorder, bipolar type (principal); M41.9 Scoliosis, unspecified; R65.10 Systemic inflammatory response syndrome (SIRS) of non-infectious origin without acute organ dysfunction; B00.9 Herpesviral infection, unspecified; D75.89 Other specified diseases of blood and blood-forming organs; E78.5 Hyperlipidemia, unspecified; E87.6 Hypokalemia; F12.10 Cannabis abuse, uncomplicated; G89.29 Other chronic pain; I10 Essential (primary) hypertension; I25.10 Atherosclerotic heart disease of native coronary artery without angina pectoris; J45.909 Unspecified asthma, uncomplicated; R45.850 Homicidal ideations; Z72.0 Tobacco use; Z79.899 Other long term (current) drug therapy; Z90.710 Acquired absence of both cervix and uterus
CPT/HCPCS: 36415; 71045; 74177; 80048; 80061; 80074; 81003; 82140; 84439; 84443; 85025; 86592; 87491; 87591; 87806; 93005; Q9967; G0475

== ENCOUNTER 2020-02-07 19:00 | Emergency (ER) | payer MEDICAID ==
[~2020-02-07] VITALS: Ht 170.2 cm; Wt 65.0 kg
[2020-02-07 19:06] VITALS: BP 134/83
--- NOTE | 2020-02-07 20:12 | NUR ---
pt biba for back pain. per ems, pt is uncooperative and requested an epidural as soon as ems arrived. pt sonnected to moniotrs. vss. pt uncooperative with staff. pt stating, "it's all in my chart. just look it up" when asked any questions. pt refusing to participate in medication reconciliation and physical assessment. pt states that she is here because she wants back surgery and and epidural. when educated that these interventions are not performed in the er, pt states, "well then take me to the surgeon." pt educated that that will not be happening, but she may use a phone to call the surgeon if she wishes. pt declined. pt then observed by other staff dressing and walking to exit with steady gait. pt left prior to dc paperwork or education.
== END 2020-02-07 20:19 | disposition home or self-care (01) ==
LOC: ED 19:29
DX: L03.115 Cellulitis of right lower limb (principal); L03.116 Cellulitis of left lower limb; L03.012 Cellulitis of left finger; B95.62 Methicillin resistant Staphylococcus aureus infection as the cause of diseases classified elsewhere; J34.0 Abscess, furuncle and carbuncle of nose
CPT/HCPCS: 99283

== ENCOUNTER 2020-02-11 13:16 | Emergency (ER) | payer MEDICAID ==
[~2020-02-11] VITALS: Ht 165.1 cm; Wt 70.0 kg
[2020-02-11 13:45] VITALS: BP 132/90
[2020-02-11] MEDS ORDERED: IBUPROFEN 200 MG TABLET ONE (13:53)
[2020-02-11] MEDS ORDERED: IBUPROFEN 200 MG TABLET PO ONE (14:00)
[2020-02-11] MEDS ORDERED: PLEASE ENTER HEIGHT AND WEIGHT MC SCH (14:00)
== END 2020-02-11 14:10 | disposition home or self-care (01) ==
LOC: ED 13:59
DX: G89.29 Other chronic pain (principal); M54.2 Cervicalgia; F14.10 Cocaine abuse, uncomplicated; I10 Essential (primary) hypertension; E78.00 Pure hypercholesterolemia, unspecified; Z90.710 Acquired absence of both cervix and uterus
CPT/HCPCS: 99283

== ENCOUNTER 2020-02-11 23:30 | Emergency (ER) | payer MEDICAID ==
[~2020-02-11] VITALS: Ht 165.1 cm; Wt 57.0 kg
[2020-02-11 23:34] VITALS: BP 132/87
--- NOTE | 2020-02-12 00:01 | NUR ---
PT HAS C/O NON SPECIFIC PAIN SINCE SHE WAS A "TEEN". PT REPORTS NO INJURY, NO NEW CHANGES OR PROBLEMS TODAY. PT RESTING ON [facility] NADN. CALL LIGHT IN REACH. DENIES FURTHER NEEDS AT THIS TIME. PROVIDED W/ A CUP OF WATER AND CHAPSTICK.
== END 2020-02-12 00:15 | disposition home or self-care (01) ==
LOC: ED 02-12
DX: G89.29 Other chronic pain (principal); M54.9 Dorsalgia, unspecified; Z72.9 Problem related to lifestyle, unspecified; Z90.710 Acquired absence of both cervix and uterus
CPT/HCPCS: 99281

== ENCOUNTER 2020-02-12 21:12 | Emergency (ER) | payer MEDICAID ==
[~2020-02-12] VITALS: Ht 167.6 cm; Wt 65.0 kg
[2020-02-12 21:21] VITALS: BP 137/94
--- NOTE | 2020-02-12 21:25 | NUR ---
pt resting on gurney, monitors applied, stated "I have pain all over because i have chronic pain and had back surgery years ago and i just need to get prescription for pain relief", pt also stated I can get best care when i get to [facility]. erp at pt's bedside for eval
--- NOTE | 2020-02-12 21:37 | NUR ---
found pt up in room going through cabinets, informed pt not to be going through cabinets and she is now sitting on [facility] awaiting d/c paper
== END 2020-02-12 21:42 | disposition home or self-care (01) ==
LOC: ED 21:24
DX: F22 Delusional disorders (principal); F17.200 Nicotine dependence, unspecified, uncomplicated; I10 Essential (primary) hypertension; F31.9 Bipolar disorder, unspecified; Z90.710 Acquired absence of both cervix and uterus
CPT/HCPCS: 99283

== ENCOUNTER 2020-02-15 20:54 | Emergency (ER) | payer MEDICAID ==
[~2020-02-15] VITALS: Ht 170.2 cm; Wt 55.0 kg
[2020-02-15] MEDS ORDERED: TRAM50TA2 PO (21:05)
[2020-02-15] MEDS ORDERED: ALPR0.25 PO (21:05)
--- NOTE | 2020-02-15 21:05 | NUR ---
PT GOING THROUGH CABINETS IN ROOM, DISCUSSED WITH PT NOT TO GO THROUGH THE CABINETS THAT I WILL ASSIST HER WITH NEEDS, PT STATED "OK AND SAT ON GURNEY", DENIES NEEDS AT THIS TIME. PT SITTING UP ON GURNEY, MONITORS APPLIED, SIDERAILS UP X2, CALL LIGHT WITHIN REACH, PROVIDED PT WITH WARM BLANKET
[2020-02-15 21:24] VITALS: BP 110/68
--- NOTE | 2020-02-15 21:24 | NUR ---
PT RESTING ON GURENY WITH EYES CLOSED, NAD, RESIRATIONS EVEN AND UNLABORED, CALL LIGHT WITHIN REACH
== END 2020-02-15 21:34 | disposition home or self-care (01) ==
LOC: ED 21:10
DX: R10.2 Pelvic and perineal pain (principal); M54.2 Cervicalgia; R07.89 Other chest pain; M94.0 Chondrocostal junction syndrome [Tietze]; M54.9 Dorsalgia, unspecified; M79.18 Myalgia, other site; R68.84 Jaw pain; H57.10 Ocular pain, unspecified eye; M79.603 Pain in arm, unspecified; M79.606 Pain in leg, unspecified; I10 Essential (primary) hypertension; F17.200 Nicotine dependence, unspecified, uncomplicated; Z90.710 Acquired absence of both cervix and uterus
CPT/HCPCS: 99283

== ENCOUNTER 2020-02-17 16:24 | Emergency (ER) | payer MEDICAID ==
[~2020-02-17] VITALS: Ht 170.2 cm; Wt 57.2 kg
[~2020-02-17 16:24] MED LIST changes: +ALPR0.25 PO; +TRAM50TA2 PO
[2020-02-17 16:39] VITALS: BP 139/83
--- NOTE | 2020-02-17 16:41 | NUR ---
THIS IS A 44 YO F [facility] AFTER THEY RECEIVED MULTIPLE CALLS THAT PT WAS LYING ON THE FREEWAY. PT DENIES SI/HI, VISUAL/AUDITORY HALLUCINATIONS. PT REPORTS SHE WAS TRYING TO CRACK HER BACK AND THAT IS WHY SHE WAS LAYING DOWN. PT REPORTS TAKING MEDS BUT DOES NOT KNOW THE NAMES, STATES "THEY ARE ON FILE". PTS VSS, CLOTHING AND BELONGINGS REMOVED PLACED IN 1 BAG AND PLACED IN SAFETY LOCKER, GARAGE DOORS DOWN, SITTER OUTSIDE ROOM. PT AMBULATED TO THE W/ A STEADY GAIT, PROVIDED URINE SAMPLE. [facility]ED TO [facility]. AWAITING ED EVAL.
--- NOTE | 2020-02-17 16:42 | NUR ---
PT PLACED ON LGAL HOLD BY [facility].
[2020-02-17] MEDS ORDERED: DIVA-61 PO (16:52)
[2020-02-17] MEDS ORDERED: GEMF600T8 PO (16:52)
[2020-02-17] MEDS ORDERED: HYDR50CA2 PO (16:52)
[2020-02-17] MEDS ORDERED: CHLO25TA PO (16:52)
[2020-02-17] MEDS ORDERED: GABAPENTIN (16:53)
[2020-02-17] MEDS ORDERED: QUETIAPINE (16:54)
--- NOTE | 2020-02-17 17:11 | NUR ---
IN ROOM FOR ED EVAL.
--- NOTE | 2020-02-17 17:15 | NUR ---
MARIA TERESA STARK CONTACTED TO COME SPEAK W/ PT.
--- NOTE | 2020-02-17 17:33 | NUR ---
MARIA TERESA STARK IN ROOM.
--- NOTE | 2020-02-17 19:15 | NUR ---
PT SLEEPING ON GURNEY, CHEST RISE AND FALL OBSERVED.
[2020-02-17 19:31] LABS: AMPHETAMINE SCREEN, URINE Negative (Negative); BARBITURATE SCREEN, URINE Negative (Negative); BENZODIAZEPINE SCREEN, URINE Negative (Negative); CANNABINOID SCREEN, URINE Positive (Negative); COCAINE SCREEN, URINE Negative (Negative); METHADONE SCREEN, URINE Negative (Negative); OPIATE SCREEN, URINE Negative (Negative)
[2020-02-17 19:39] LABS: BASOPHILS % (AUTO) 1 % (0-1); EOSINOPHILS # (AUTO) 0.07 x10^3/uL (0-0.4); EOSINOPHILS % (AUTO) 1 % (1-7); LYMPHOCYTES # (AUTO) 4.14 x10^3/uL (1-3.4); LYMPHOCYTES % (AUTO) 33 % (22-44); MD NO; MEAN CORPUSCULAR HEMOGLOBIN 33.4 pg (27.0-34.8); MEAN CORPUSCULAR HGB CONC 33.7 g/dL (32.4-35.8); MEAN PLATELET VOLUME 8.2 fL (7.4-10.4); MONOCYTES # (AUTO) 0.85 x10^3/uL (0.2-0.8); MONOCYTES % (AUTO) 7 % (2-9); NEUTROPHILS # (AUTO) 7.34 x10^3/uL (1.8-6.8); NEUTROPHILS % (AUTO) 59 % (42-75); PLATELET COUNT 631 x10^3/uL (130-400); RED BLOOD COUNT 3.98 x10^6/uL (3.82-5.3)
[2020-02-17 19:40] LABS: ANION GAP 6 mmol/L (5-15); CALCIUM 8.8 mg/dL (8.5-10.1); CHLORIDE 110 mmol/L (98-107); SALICYLATE LEVEL 2.7 mg/dL (2.8-20.0)
[2020-02-17 19:46] LABS: ALANINE AMINOTRANSFERASE 26 U/L (12-78); ALKALINE PHOSPHATASE 83 U/L (45-117); BILIRUBIN,TOTAL 0.4 mg/dL (0.2-1.0); TOTAL PROTEIN 7.4 g/dL (6.4-8.2)
--- NOTE | 2020-02-17 19:49 | NUR ---
SPOKE TO Pete MAYS WHOM STATES DR Pierce ACCEPTS THE PATIENTS. ER NURSE TO CALL REPORT TO 3E RN WHEN AVAILABLE.
--- NOTE | 2020-02-17 20:05 | NUR ---
REPORT GIVEN TO DENICE LOPEZ. PT IS READY FOR TRANSPORT AT THIS TIME.
--- NOTE | 2020-02-17 20:11 | NUR ---
SPOKE TO FOAM FABRICATOR DAVON AGAIN WHOM SATTES THEIR ACCOUNT HAS BEEN CREATED AND THEY ARE READYF RO PT TO BE TRANSPORTED UP.
[2020-02-18] MEDS ORDERED: GABA600T7 PO (12:34)
== END 2020-02-18 15:32 ==
LOC: ED 18:21
DX: F23 Brief psychotic disorder (principal); F22 Delusional disorders; F17.210 Nicotine dependence, cigarettes, uncomplicated; I10 Essential (primary) hypertension; E78.00 Pure hypercholesterolemia, unspecified; Z90.710 Acquired absence of both cervix and uterus
CPT/HCPCS: 36415; 80053; 80307; 84703; 85025; 90471; 99285; 99406

== ENCOUNTER 2020-02-17 19:59 | Inpatient (IN) | payer MEDICAID ==
[~2020-02-17] VITALS: Ht 170.2 cm; Wt 56.3 kg
[~2020-02-17 19:59] MED LIST changes: +GABAPENTIN; +QUETIAPINE
[2020-02-17] MEDS ORDERED: DOCUSATE 100 MG CAPSULE PO PRN (20:30)
[2020-02-17] MEDS ORDERED: POLYETHYLENE GLYCOL 17 GM PACKET PO PRN (20:30)
[2020-02-17] MEDS ORDERED: ONDANSETRON ODT 4 MG PO PRN (20:30)
[2020-02-17] MEDS ORDERED: PLEASE ENTER HEIGHT AND WEIGHT MC SCH (21:00)
[2020-02-17] MEDS: QUETIAPINE 100MG TABLET PO SCH (21:22)
[2020-02-17] MEDS: ACETAMINOPHEN 325 MG TABLET PO PRN (21:22)
[2020-02-17] MEDS: DIVALPROEX 250 MG TABLET.DR PO SCH (21:22)
[2020-02-17 21:30] VITALS: BP 142/80
[2020-02-17 23:00] VITALS: BP 142/80
[2020-02-18 06:06] LABS: ANION GAP 5 mmol/L (5-15); CALCIUM 8.9 mg/dL (8.5-10.1); CHLORIDE 112 mmol/L (98-107); CREATININE 0.72 mg/dL (0.55-1.02)
[2020-02-18 06:17] LABS: BASOPHILS # (AUTO) 0.05 x10^3/uL (0-0.1); BASOPHILS % (AUTO) 1 % (0-1); EOSINOPHILS # (AUTO) 0.13 x10^3/uL (0-0.4); EOSINOPHILS % (AUTO) 1 % (1-7); LYMPHOCYTES # (AUTO) 4.56 x10^3/uL (1-3.4); LYMPHOCYTES % (AUTO) 49 % (22-44); MD NO; MEAN CORPUSCULAR HEMOGLOBIN 33.1 pg (27.0-34.8); MEAN CORPUSCULAR VOLUME 100.4 fL (80-100); MONOCYTES # (AUTO) 0.87 x10^3/uL (0.2-0.8); MONOCYTES % (AUTO) 9 % (2-9); NEUTROPHILS # (AUTO) 3.62 x10^3/uL (1.8-6.8); NEUTROPHILS % (AUTO) 39 % (42-75); PLATELET COUNT 573 x10^3/uL (130-400); RED BLOOD COUNT 4.02 x10^6/uL (3.82-5.3); RED CELL DISTRIBUTION WIDTH 14.2 % (9.6-15.2)
[2020-02-18 06:32] LABS: FREE T4 (FREE THYROXINE) 1.08 ng/dL (0.76-1.46)
[2020-02-18 07:00] VITALS: BP 126/88
[2020-02-18] MEDS: POTASSIUM CHLORIDE 20 MEQ TAB.ER.PRT PO SCH (08:48)
[2020-02-18] MEDS: CHLORTHALIDONE 25 MG TABLET PO SCH (08:49)
[2020-02-18] MEDS: SERTRALINE 50MG TABLET PO SCH (08:49)
[2020-02-18] MEDS: GEMFIBROZIL 600 MG TABLET PO SCH ×2 (08:50→19:53)
[2020-02-18] MEDS: DIVALPROEX 250 MG TABLET.DR PO SCH ×2 (08:50→19:52)
[2020-02-18] MEDS: ACETAMINOPHEN 325 MG TABLET PO PRN ×3 (08:51→19:52)
[2020-02-18] MEDS: NICOTINE 21 MG/24 HR PATCH.TD24 TD SCH (08:53)
[2020-02-18] MEDS ORDERED: QUETIAPINE 100MG TABLET PO SCH (09:00)
[2020-02-18] MEDS ORDERED: GABA600T7 PO (12:34)
[2020-02-18] MEDS: MUPIROCIN OINT 2%, 22GM TP SCH ×3 (13:00→19:52)
[2020-02-18] MEDS: PALIPERIDONE 3 MG TAB.ER.24 PO SCH (14:44)
[2020-02-18 19:15] VITALS: BP 130/86
[2020-02-18] MEDS: QUETIAPINE 100MG TABLET PO SCH (19:48)
[2020-02-19] MEDS: ACETAMINOPHEN 325 MG TABLET PO PRN ×3 (06:37→15:52)
[2020-02-19 07:31] VITALS: BP 130/89
[2020-02-19] MEDS: SERTRALINE 50MG TABLET PO SCH (08:41)
[2020-02-19] MEDS: PALIPERIDONE 3 MG TAB.ER.24 PO SCH (08:41)
[2020-02-19] MEDS: CHLORTHALIDONE 25 MG TABLET PO SCH (08:42)
[2020-02-19] MEDS: GEMFIBROZIL 600 MG TABLET PO SCH ×2 (08:42→19:41)
[2020-02-19] MEDS: DIVALPROEX 250 MG TABLET.DR PO SCH ×2 (08:43→19:41)
[2020-02-19] MEDS: POTASSIUM CHLORIDE 20 MEQ TAB.ER.PRT PO SCH (08:43)
[2020-02-19] MEDS: NICOTINE 21 MG/24 HR PATCH.TD24 TD SCH (08:46)
[2020-02-19] MEDS: MUPIROCIN OINT 2%, 22GM TP SCH ×3 (09:11→19:43)
[2020-02-19 10:38] LABS: MICROSCOPIC NOT IND
[2020-02-19 11:03] LABS: CULTURE INDICATED? NO
[2020-02-19] MEDS ORDERED: PALIPERIDONE PALMITATE 234 MG/1.5 ML IM ONE (12:00)
[2020-02-19] MEDS: HYDROXYZINE PAMOATE 50MG CAP PO PRN (15:37)
[2020-02-19] MEDS: QUETIAPINE 100MG TABLET PO SCH (19:41)
[2020-02-19 19:49] VITALS: BP 146/93
[2020-02-20] MEDS: HYDROXYZINE PAMOATE 50MG CAP PO PRN ×3 (04:05→20:26)
[2020-02-20 07:29] VITALS: BP 120/89
[2020-02-20] MEDS ORDERED: PALIPERIDONE PALMITATE 234 MG/1.5 ML IM ONE ×2 (09:00→15:00)
[2020-02-20] MEDS: POTASSIUM CHLORIDE 20 MEQ TAB.ER.PRT PO SCH (09:07)
[2020-02-20] MEDS: PALIPERIDONE 3 MG TAB.ER.24 PO SCH (09:07)
[2020-02-20] MEDS: CHLORTHALIDONE 25 MG TABLET PO SCH (09:08)
[2020-02-20] MEDS: DIVALPROEX 250 MG TABLET.DR PO SCH ×2 (09:08→20:26)
[2020-02-20] MEDS: SERTRALINE 50MG TABLET PO SCH (09:09)
[2020-02-20] MEDS: GEMFIBROZIL 600 MG TABLET PO SCH ×2 (09:09→20:26)
[2020-02-20] MEDS: ACETAMINOPHEN 325 MG TABLET PO PRN ×2 (09:22→14:16)
[2020-02-20] MEDS: NICOTINE 21 MG/24 HR PATCH.TD24 TD SCH (09:22)
[2020-02-20] MEDS: MUPIROCIN OINT 2%, 22GM TP SCH ×3 (09:23→20:27)
[2020-02-20 19:30] VITALS: BP 147/92
[2020-02-20] MEDS: QUETIAPINE 100MG TABLET PO SCH (20:26)
[2020-02-21] MEDS: HYDROXYZINE PAMOATE 50MG CAP PO PRN ×2 (02:41→10:54)
[2020-02-21] MEDS: ACETAMINOPHEN 325 MG TABLET PO PRN ×2 (02:41→08:53)
[2020-02-21 07:20] VITALS: BP 123/78
[2020-02-21] MEDS: POTASSIUM CHLORIDE 20 MEQ TAB.ER.PRT PO SCH (08:45)
[2020-02-21] MEDS: DIVALPROEX 250 MG TABLET.DR PO SCH (08:46)
[2020-02-21] MEDS: CHLORTHALIDONE 25 MG TABLET PO SCH (08:46)
[2020-02-21] MEDS: GEMFIBROZIL 600 MG TABLET PO SCH (08:46)
[2020-02-21] MEDS: PALIPERIDONE 3 MG TAB.ER.24 PO SCH (08:46)
[2020-02-21] MEDS: SERTRALINE 50MG TABLET PO SCH (08:47)
[2020-02-21] MEDS: NICOTINE 21 MG/24 HR PATCH.TD24 TD SCH (08:52)
[2020-02-21] MEDS: MUPIROCIN OINT 2%, 22GM TP SCH (10:54)
[2020-02-21] MEDS ORDERED: PALI3TAB11 PO (12:35)
== END 2020-02-21 13:59 | disposition home or self-care (01) | DRG 750 ==
LOC: 3E 20:15
PROVIDERS: ADMIT Psychiatry & Neurology Psychosomatic Medicine; ATTEND Psychiatry & Neurology Psychosomatic Medicine
DX: F25.0 Schizoaffective disorder, bipolar type (principal); Z59.0 Homelessness; E78.1 Pure hyperglyceridemia; E78.5 Hyperlipidemia, unspecified; F17.200 Nicotine dependence, unspecified, uncomplicated; F41.9 Anxiety disorder, unspecified; F12.10 Cannabis abuse, uncomplicated; F17.210 Nicotine dependence, cigarettes, uncomplicated; I10 Essential (primary) hypertension; I25.10 Atherosclerotic heart disease of native coronary artery without angina pectoris; M54.9 Dorsalgia, unspecified; J45.909 Unspecified asthma, uncomplicated; Z90.710 Acquired absence of both cervix and uterus; Z91.19 Patient's noncompliance with other medical treatment and regimen; Z84.89 Family history of other specified conditions; Z83.3 Family history of diabetes mellitus; Z83.6 Family history of other diseases of the respiratory system; Z71.51 Drug abuse counseling and surveillance of drug abuser; Z56.0 Unemployment, unspecified
CPT/HCPCS: 36415; 80048; 81003; 82140; 82607; 84439; 84443; 85025; 93005; J2426

== ENCOUNTER 2020-02-21 23:11 | Emergency (ER) | payer MEDICAID ==
[~2020-02-21] VITALS: Ht 170.2 cm; Wt 58.6 kg
[~2020-02-21 23:11] MED LIST changes: +GABA600T7 PO; +PALI3TAB11 PO
[2020-02-22 00:50] VITALS: BP 122/74
== END 2020-02-22 00:53 | disposition home or self-care (01) ==
LOC: ED 02-22
DX: S39.012A Strain of muscle, fascia and tendon of lower back, initial encounter (principal); G89.29 Other chronic pain; X58.XXXA Exposure to other specified factors, initial encounter; Y93.89 Activity, other specified; Y92.89 Other specified places as the place of occurrence of the external cause; Y99.8 Other external cause status
CPT/HCPCS: 72110; 99284

== ENCOUNTER 2020-02-22 21:02 | Emergency (ER) | payer MEDICAID ==
[~2020-02-22] VITALS: Ht 170.2 cm; Wt 59.6 kg
[2020-02-22 21:04] VITALS: BP 111/70
[2020-02-22] MEDS ORDERED: ACETAMINOPHEN 500 MG TABLET ONE (21:19)
--- NOTE | 2020-02-22 21:22 | NUR ---
PT MEDICATED PER EMAR. 5 RIGHTS ADDRESSED.
--- NOTE | 2020-02-22 21:22 | NUR ---
Patient/Caregiver given discharge instructions and they have confirmed that they understand the instructions. Patient ambulatory with steady gait.
[2020-02-22] MEDS ORDERED: ACETAMINOPHEN 500 MG TABLET PO ONE (21:30)
== END 2020-02-22 23:25 | disposition home or self-care (01) ==
LOC: ED 21:15
DX: G89.29 Other chronic pain (principal); M79.10 Myalgia, unspecified site; I10 Essential (primary) hypertension; F17.200 Nicotine dependence, unspecified, uncomplicated; Z90.710 Acquired absence of both cervix and uterus
CPT/HCPCS: 99283

== ENCOUNTER 2020-02-23 20:24 | Emergency (ER) | payer MEDICAID ==
[~2020-02-23] VITALS: Ht 170.2 cm; Wt 58.0 kg
[2020-02-23 20:28] VITALS: BP 97/54
[2020-02-23] MEDS ORDERED: IBUPROFEN 600 MG TABLET ONE (20:44)
--- NOTE | 2020-02-23 20:54 | NUR ---
PT REPORTS SHE IS NOT LEAVING HER UNTIL SHE IS PAIN FREE. REPORTS THAT WHEN SHE IS PAIN FREE SHE WANTS TO GO UP TO THE 3RD FLOOR TO SEE WHICH BABY SHE WANTS TO ADOPT. ENCOURAGED PT TO STAY IN THE ED. MOTRIN GIVEN.
[2020-02-23] MEDS ORDERED: IBUPROFEN 600 MG TABLET PO ONE (21:00)
== END 2020-02-23 21:44 | disposition home or self-care (01) ==
LOC: ED 20:40
DX: G89.29 Other chronic pain (principal); M54.5 Low back pain; F17.200 Nicotine dependence, unspecified, uncomplicated; I10 Essential (primary) hypertension; E87.1 Hypo-osmolality and hyponatremia; R68.0 Hypothermia, not associated with low environmental temperature; Z90.710 Acquired absence of both cervix and uterus
CPT/HCPCS: 99283

== ENCOUNTER 2020-02-23 22:06 | Emergency (ER) | payer MEDICAID ==
[~2020-02-23] VITALS: Ht 170.2 cm; Wt 58.0 kg
[2020-02-23 22:08] VITALS: BP 134/74
--- NOTE | 2020-02-23 22:17 | NUR ---
PT ENCOURAGED TO NOT CALL THE AMBULANCE UNLESS IT IS AN EMERGENCY.
--- NOTE | 2020-02-23 22:31 | NUR ---
LATE ENTRY: PT AGAIN INSISTS ON GOING UPSTAIRS. SECURITY CALLED TO ESCORT PT OUT.
== END 2020-02-23 22:32 | disposition home or self-care (01) ==
LOC: ED 22:19
DX: F10.229 Alcohol dependence with intoxication, unspecified (principal); F32.9 Major depressive disorder, single episode, unspecified; Y90.9 Presence of alcohol in blood, level not specified
CPT/HCPCS: 99283

== ENCOUNTER 2020-02-25 09:06 | Emergency (ER) | payer MEDICAID ==
[~2020-02-25] VITALS: Ht 170.2 cm; Wt 59.0 kg
[2020-02-25 09:10] VITALS: BP 113/74
--- NOTE | 2020-02-25 09:17 | NUR ---
THIS IS A 44 YO F BIB EMS W/ C/O CHRONIC BACK PAIN NO NEW CHANGES. EMS REPORTS PTS BP ON SCENE WAS 75/63, GIVEN 250 CC BOLUS, BP NOW 113/74. EMS ALSO GAVE 344MG ASPIRIN. ALL VSS. RESP EVEN AND UNLABORED. PT AMBULATED TO THE BR W/ A STEADY GAIT.
--- NOTE | 2020-02-25 09:28 | NUR ---
PT FOUND IN BATHROOM WASHING HAIR AND FEET IN SINK. INSTRUCTED TO GO BACK TO ROOM AND INFORMED THAT THIS IS UNACCEPTABLE BEHAVIOR.
--- NOTE | 2020-02-25 09:35 | NUR ---
LAB IN ROOM.
--- NOTE | 2020-02-25 09:43 | NUR ---
PT MAKING REQUESTS FOR A CALENDAR, BACKPACK, UNDERWEAR, SOCKS, PANTS, SHOES, FOOD AND TO SPEAK WITH THE DOCTOR ON THE 3RD FLOOR. PROVIDED UNDERWEAR AND SHOES, PT INFORMED SHE HAS PANTS FROM WHEN SHE CAME IN.
[2020-02-25 09:47] LABS: BASOPHILS # (AUTO) 0.05 x10^3/uL (0-0.1); BASOPHILS % (AUTO) 1 % (0-1); EOSINOPHILS # (AUTO) 0.02 x10^3/uL (0-0.4); EOSINOPHILS % (AUTO) 0 % (1-7); LYMPHOCYTES # (AUTO) 3.04 x10^3/uL (1-3.4); LYMPHOCYTES % (AUTO) 32 % (22-44); MD NO; MEAN CORPUSCULAR HEMOGLOBIN 33.3 pg (27.0-34.8); MEAN CORPUSCULAR HGB CONC 33.6 g/dL (32.4-35.8); MEAN CORPUSCULAR VOLUME 99.1 fL (80-100); MEAN PLATELET VOLUME 7.8 fL (7.4-10.4); MONOCYTES # (AUTO) 0.42 x10^3/uL (0.2-0.8); MONOCYTES % (AUTO) 5 % (2-9); NEUTROPHILS # (AUTO) 5.87 x10^3/uL (1.8-6.8); NEUTROPHILS % (AUTO) 63 % (42-75); PLATELET COUNT 453 x10^3/uL (130-400); RED BLOOD COUNT 4.22 x10^6/uL (3.82-5.3); RED CELL DISTRIBUTION WIDTH 13.8 % (9.6-15.2)
[2020-02-25 10:01] LABS: ALANINE AMINOTRANSFERASE 22 U/L (12-78); ALBUMIN 3.2 g/dL (3.4-5.0); ANION GAP 4 mmol/L (5-15); CALCIUM 9.3 mg/dL (8.5-10.1); CHLORIDE 106 mmol/L (98-107); CREATININE 0.74 mg/dL (0.55-1.02)
--- NOTE | 2020-02-25 10:01 | NUR ---
PT REFUSING TO KEEP MONITORING ON.
[2020-02-25 10:05] LABS: ALKALINE PHOSPHATASE 93 U/L (45-117); BILIRUBIN,TOTAL 0.3 mg/dL (0.2-1.0); TOTAL PROTEIN 7.5 g/dL (6.4-8.2); TROPONIN I < 0.015 ng/mL (0.000-0.045)
--- NOTE | 2020-02-25 10:08 | NUR ---
PT STATES SHE DOES NOT WANT TO BE HERE ANYMORE. STATES SHE WANTS TO CALL HER DOCTOR TO MAKE AN APPOINTMENT FOR BACK SURGERY. PT ADVISED TO STAY TIL WE RECEIVE HER TEST RESULTS. PT STATES SHE IS LEAVING. SIGNED AMA FORM. AMBULATED W/ A STEADY GAIT TO LOBBY.
== END 2020-02-25 10:15 | disposition left against medical advice (07) ==
LOC: ED 09:53
DX: M54.9 Dorsalgia, unspecified (principal); I95.9 Hypotension, unspecified; E87.6 Hypokalemia; I10 Essential (primary) hypertension; Z90.710 Acquired absence of both cervix and uterus
CPT/HCPCS: 36415; 80053; 83880; 84484; 84703; 85025; 99283

== ENCOUNTER 2020-02-27 09:02 | Emergency (ER) | payer MEDICAID ==
[~2020-02-27] VITALS: Ht 170.2 cm; Wt 58.9 kg
[2020-02-27 09:21] VITALS: BP 139/91
--- NOTE | 2020-02-27 10:19 | NUR ---
NO ANSWER TO ROOM
[2020-02-27] MEDS ORDERED: IBUPROFEN 600 MG TABLET ONE (11:21)
[2020-02-27] MEDS ORDERED: IBUPROFEN 600 MG TABLET PO ONE (11:30)
== END 2020-02-27 11:32 | disposition home or self-care (01) ==
LOC: ED 10:30
DX: F20.1 Disorganized schizophrenia (principal); G89.29 Other chronic pain; K08.89 Other specified disorders of teeth and supporting structures; M79.672 Pain in left foot; M79.671 Pain in right foot; I10 Essential (primary) hypertension; E78.00 Pure hypercholesterolemia, unspecified; F17.200 Nicotine dependence, unspecified, uncomplicated
CPT/HCPCS: 99282

== ENCOUNTER 2021-04-04 17:33 | Emergency (ER) | payer MEDICAID ==
[~2021-04-04] VITALS: Ht 165.1 cm; Wt 65.0 kg
[~2021-04-04 17:33] MED LIST changes: +GEMF-31 PO; -GEMF600T8 PO; -NICO-487 TD; +NICO-587 TD
--- NOTE | 2021-04-04 17:43 | NUR ---
PT'S MOTHER: DORA BAHENAYCE,
[2021-04-04] MEDS ORDERED: LORazepam 1MG TABLET ONE (18:25)
[2021-04-04] MEDS ORDERED: LORazepam 1MG TABLET PO ONE (18:30)
--- NOTE | 2021-04-04 18:36 | NUR ---
KATIA Irvin at bedside for eval. room secure. sitter monitoring from [facility] for safety. urine sent to lab.
[2021-04-04 18:37] LABS: BASOPHILS % (AUTO) 1 % (0-1); EOSINOPHILS % (AUTO) 1 % (1-7); LYMPHOCYTES % (AUTO) 28 % (22-44); MEAN CORPUSCULAR HEMOGLOBIN 33.4 pg (27.0-34.8); MEAN CORPUSCULAR HGB CONC 34.5 g/dL (32.4-35.8); MEAN PLATELET VOLUME 7.8 fL (7.4-10.4); MONOCYTES % (AUTO) 9 % (2-9); NEUTROPHILS % (AUTO) 61 % (42-75); PLATELET COUNT 427 x10^3/uL (130-400); RED BLOOD COUNT 4.69 x10^6/uL (3.82-5.3)
[2021-04-04 18:49] LABS: ALBUMIN 3.7 g/dL (3.4-5.0); ANION GAP 8 mmol/L (5-15); CALCIUM 9.4 mg/dL (8.5-10.1); CHLORIDE 110 mmol/L (98-107); CREATININE 0.99 mg/dL (0.55-1.02); SALICYLATE LEVEL 3.8 mg/dL (2.8-20.0)
--- NOTE | 2021-04-04 18:50 | NUR ---
report given to JESSICA Kidd at bedside. pt presents to ED with c/o SI with plan to drink bleach. all belongings secured in ED locked cabinet, as follows: shirt, pants, shoes x 2, cigarrettes, wallet, $30, stuffed bear, upper and lower dentures (in case), denture adhesive, denture brush, toothpaste. pt elected to have staff lock dentures with other belongings in cabinet "because they don't work anyway" . room secure. sitter monitoring from [facility] for safety.
--- NOTE | 2021-04-04 18:52 | NUR ---
report recieved from Gerardo LOPEZ
[2021-04-04 18:58] LABS: AMPHETAMINE SCREEN, URINE Negative (Negative); BARBITURATE SCREEN, URINE Negative (Negative); BENZODIAZEPINE SCREEN, URINE Negative (Negative); CANNABINOID SCREEN, URINE Negative (Negative); COCAINE SCREEN, URINE Negative (Negative); METHADONE SCREEN, URINE Negative (Negative); OPIATE SCREEN, URINE Negative (Negative)
--- NOTE | 2021-04-04 19:02 | NUR ---
pt laying in bed, a/ox4, all needs in reach, call light in reach, NAD, pt reports SI with a plan to, "drink my moms bottle of bleach."
--- NOTE | 2021-04-04 19:11 | NUR ---
reggie lainez aware of elevated wbc, no source of infection at this time. this information was passed to Bernabe LOPEZ in report.
--- NOTE | 2021-04-04 19:15 | NUR ---
pt refusing to complete med rec with this rn, unable to complete at this time.
--- NOTE | 2021-04-04 20:22 | NUR ---
pt laying in bed, a/ox4, all needs in reach, call light in reach, NAD, sitter in line of sight of pt
--- NOTE | 2021-04-04 21:10 | NUR ---
pt assessed by MD and MD cleared pt for discharge
--- NOTE | 2021-04-04 21:23 | NUR ---
LEFT VM MESSAGE FOR PT'S MOTHER, PT NEEDS RIDE FOR DC.
--- NOTE | 2021-04-04 21:26 | NUR ---
SPOKE WITH PT'S MOTHER GINA, SHE WILL COME LEATHER TANNER PT IN ABOUT 45 MINUTES, COMING FROM [place].
--- NOTE | 2021-04-04 22:02 | NUR ---
All belongings from [facility] returned back to pt. by this nurse.
--- NOTE | 2021-04-04 22:03 | NUR ---
pt to be safely discharged home with mother who is on the way to pick her up from MD diane discharged pt aslong as pt is with a responsible adult, pt asked this RN for scripts and this RN stated that pt needed to call her primary care provider in order to get scripts
[2021-04-04 22:10] VITALS: BP 158/89
--- NOTE | 2021-04-04 22:15 | NUR ---
after pt was given belongings to get dressed, this RN walked into room to give pt her discharge papers and when this RN entered the room pt was already gone, this RN checked bathroom and pt was not there, pt was not in the lobby either, charge nurse informed
== END 2021-04-04 22:21 | disposition home or self-care (01) ==
LOC: ED 18:00
DX: R45.851 Suicidal ideations (principal); F33.9 Major depressive disorder, recurrent, unspecified; Z72.9 Problem related to lifestyle, unspecified; E78.00 Pure hypercholesterolemia, unspecified; I10 Essential (primary) hypertension; F17.210 Nicotine dependence, cigarettes, uncomplicated; Z90.710 Acquired absence of both cervix and uterus
CPT/HCPCS: 36415; 80048; 80299; 80307; 80320; 80329; 82040; 84703; 85025; 99284; G0480